=== PATIENT | female | born 1945 | race Caucasian/White ===

== ENCOUNTER 2016-12-24 08:38 | Day surgery (SDC) | payer MEDICARE | END 2016-12-24 11:36 | disposition home or self-care (01) | LOC: SDC 08:38 | PROVIDERS: Ophthalmology | PROC: 08RJ3JZ Replacement of Right Lens with Synthetic Substitute, Percutaneous Approach (ICD-10-PCS; principal; 2016-12-24 11:00) | DX: H25.813 Combined forms of age-related cataract, bilateral (principal); H53.8 Other visual disturbances; E11.9 Type 2 diabetes mellitus without complications | CPT/HCPCS: V2632 ==

== ENCOUNTER 2017-01-14 10:04 | Day surgery (SDC) | payer MEDICARE | END 2017-01-14 13:40 | disposition home or self-care (01) | LOC: SDC 10:04 | PROVIDERS: Ophthalmology | PROC: 08RK3JZ Replacement of Left Lens with Synthetic Substitute, Percutaneous Approach (ICD-10-PCS; principal; 2017-01-14 14:00) | DX: Z98.49 Cataract extraction status, unspecified eye (principal); H25.812 Combined forms of age-related cataract, left eye | CPT/HCPCS: V2632 ==